=== PATIENT | female | born 1950 | race Caucasian/White ===

== ENCOUNTER 2020-09-20 11:19 | Emergency (ER) | payer MEDICARE, OTHER, SELFPAY ==
[2020-09-20 11:22] VITALS: BP 137/89; PULSE 95; RESP 20; TEMP 36.6; O2SAT 94; BMI 25.7
--- NOTE | 2020-09-20 12:20 | XRR_ITS ---
PROCEDURE INFORMATION: Exam: XR Chest, 1 View Exam date and time: 09/20/2020 12:20 PM Age: 69 years old Clinical indication: Cough and shortness of breath; Additional info: Dyspnea/cough TECHNIQUE: Imaging protocol: XR of the chest Views: 1 view. COMPARISON: No relevant prior studies available. FINDINGS: Lungs: No CHF or focal consolidation. Pleural space: No pleural effusion. No pneumothorax. Heart/Mediastinum: No cardiomegaly. Bones/joints: No acute findings. XR/XR chest 1V portable [id number] IMPRESSION: No acute findings.
[2020-09-20 13:42] VITALS: RESP 18; O2SAT 95
--- NOTE | 2020-09-20 14:02 | ED_ITS ---
HPI - COVID General: Chief Complaint: COVID symptoms Stated Complaint: COVID POSITIVE Time Seen by Provider: 09/20/20 13:17 Triage information: Has fever, cough or shortness of breath . Exposure to COVID + person last 14 days History of Present Illness: HPI Narrative: 69-year-old female presented to emergency room with complaints of Covid. She is concerned with her oxygen saturation monitoring here though she maintains good oxygen. She was tested on 1228 and was positive. We do not have a copy of it in our records. She would like to get bam one of them have been fusion. complaint: known COVID positive Prior covid testing: yes, results known COVID 19 common symptoms: positive fever(s), chills, cough, non-productive cough, dyspnea, body aches, headache(s) and nasal congestion; negative nausea, vomiting or diarrhea COVID 19 other sytmptoms: negative chest pain or requiring oxygen Onset (ago): day(s) Severity: mild Treatment prior to arrival: none COVID Results: No Data to Display Review of Systems Const: Reports: fever(s), chills and body aches ENMT: Reports: nasal congestion Card: Denies: chest pain, edema, dyspnea on exertion or orthopnea Resp: Reports: dyspnea and non-productive cough GI: Denies: abdominal pain, nausea, vomiting, hematemesis, coffee ground emesis, diarrhea, constipation, bloating, hematochezia or melena : Denies: flank pain, difficulty voiding, dysuria, urinary frequency or urinary urgency Skin/Breast: Denies: rash or pruritus Neuro: Reports: headache(s) Physical Exam Const: COMMON NORMALS: no acute distress GENERAL APPEARANCE: cooperative and comfortable ORIENTATION/CONSCIOUSNESS: Yes awake, Yes oriented to person, Yes oriented to place and Yes oriented to time HENMT: COMMON NORMALS: normocephalic, atraumatic and hearing grossly normal bilaterally HEAD & SCALP: normocephalic and atraumatic Neck/C-Spine: COMMON NORMALS: no JVD Resp: COMMON NORMALS: normal respiratory effort, No retractions, No use of accessory muscles and clear to auscultation bilaterally AUSCULTATION: clear to auscultation bilaterally Cardio: COMMON NORMALS: no JVD, regular rate, regular rhythm and No murmurs present (Cardio) RATE: regular rate RHYTHM: regular rhythm GI: COMMON NORMALS: Soft to palpation and No hepatosplenomegaly present AUSCULTATION: Yes normoactive bowel sounds PALPATION: Yes Soft to palpation, No Tenderness to palpation present (GI), No Guarding due to palpation present (GI) and Yes No hepatosplenomegaly present Extremity: COMMON NORMALS: normal to inspection, capillary refill normal, no clubbing, cyanosis or edema, no calf tenderness and no pedal edema Neuro: SENSORIUM/ORIENTATION: Yes oriented to person, Yes oriented to place and Yes oriented to time Skin: COMMON NORMALS: no rashes or lesions noted GENERAL SKIN EXAM: no rashes or lesions noted Course Vital Signs: Vital signs: Vital Signs Temperature 97.9 F 09/20/20 11:22 Pulse Rate 78 09/20/20 14:20 Respiratory Rate 16 09/20/20 14:20 Blood Pressure 129/64 09/20/20 14:20 Pulse Oximetry 94 09/20/20 14:20 MDM - COVID MDM Narrative: Medical decision making narrative: Patient qualifies for bam event based on her age. She is within the time window yet. Our oxygen monitoring here just shows she does not require more oxygen. Discussed risks and benefits of monoclonal antibody infusion she actually is requesting it specifically. Were unable to infuse now in the emergency room we will schedule for an outpatient infusion on 09/22/2020 if she has any worsening problems before then return COVID Results: No Data to Display Monoclonal Antibody Treatments Inclusion/Exclusion Criteria weight >/= 40 kg and + direct Sars-Cov-2 test less than 7-10 days ago age >/= 65 not requiring hospitalization and not requiring oxygen (if not chronically on oxygen) Patient education patient/family/caregiver received/reviewed fact sheet, Emergency Use Authorization/unapproved drug status discussed with patient/family/caregiver, alternatives to this treatment discussed with patient/family/caregiver, risks and benefits of medication reviewed with patient/family/caregiver, patient/family/caregiver given opportunity for questions, which were answered and patient consents to receiving Monoclonal Antibody Treatment Plan for treatment Meets criteria for Monoclonal Antibody infusion, Does not meet criteria (DO NOT GIVE) and If had positive direct antigen test for COVID, would meet criteria for Monoclonal Antibody infusion Monoclonal antibody information given and Ordering Monoclonal Antibody infusion for another day Discharge Plan Discharge Patient Disposition: Home Clinical Impression: COVID-19 Condition: Stable Prescriptions: New dexamethasone 6 mg tablet 6 mg PO DAILY Qty: 7 RF: 0 Discharge Orders: Discharge ED (Routine); Ordered 09/20/20 Ordered By: Roman Montalvo Referrals: John Martini MD [Primary Care Provider] - Discharge Diet: Usual diet Discharge Activity: Increase activity as tolerated Activity Restrictions/Additional Instructions: Case management will call to get you scheduled for monoclonal antibody infusion on 09/22/2020 Coding Level of Care Code ED Senior Underwriting Assistant for Soraya Fwd Exam Comprehensive
[2020-09-20 14:20] VITALS: BP 129/64; PULSE 78; RESP 16; O2SAT 94
--- NOTE | 2020-09-22 11:07 | DCPLANNER ---
Addendum entered by Jessica Morales 10/02/20 10:36: assurance manager insurance called to check on patient after receiving the BAM infusion. Patient stated that she is gradually getting her strength back, no headache. Has not been admitted to hospital. Addendum entered by Jessica Morales 09/24/20 15:30: Patient stated that the infusion was painless. Patient stated that before the infusion that she had no appitite, was very tired, had a headache, had a fever, and a small cough. After the infusion, she stated that she had an allergic reaction and her oxygen was low. She does not have a headache, no fever, still very weak, and she has a cough, but not bad. Patient will contact her primary care physician. Original Note: assurance manager insurance had message to order a BAM infusion for patient. assurance manager insurance faxed order to centralized scheduling, called to let Ally in centralized scheduling know that dependency case manager faxed order to scheduling.
== END 2020-09-20 14:21 | disposition home or self-care (01) ==
PROVIDERS: Emergency Provider Family Medicine; PCP Family Medicine
DX: U07.1 COVID-19 (principal)
CPT/HCPCS: 12345; 71045; 99281; 99282

== ENCOUNTER 2020-09-22 13:22 | Outpatient (CLI) | payer MEDICARE, OTHER, SELFPAY ==
[2020-09-22 13:32] VITALS: BP 124/63; PULSE 66; RESP 14; TEMP 36.4; O2SAT 96
--- NOTE | 2020-09-22 13:45 | AMB.MCA ---
Patient Information Referred by: rj Symptom onset date: 09/14/20 COVID 19 common symptoms: positive fever(s), chills, fatigue, body aches and nasal congestion COVID 19 other sytmptoms: negative chest pressure, chest pain, pleuritic pain, requiring oxygen, requiring more oxygen, respiratory distress, cyanosis, lethargy, confusion, new neurological complaints or other concerning symptoms Severity: moderate Treatment prior to arrival: aspirin OZH COVID test results: No Data to Display outside results available, scanned Criteria/Plan Inclusion/Exclusion Criteria weight >/= 40kg, + direct test </= 10 days ago and symptom onset </= 10 days ago age >/= 65 and age >/= 55 and has COPD/lung diease not requiring hospitalization, not requiring oxygen (if not chronically on oxygen) and no increase oxygen requirement (if chronically on oxygen) Patient education patient/caregiver received/reviewed fact sheet, Emergency Use Authorization/unapproved drug status discussed with patient/caregiver, alternatives to this treatment discussed with patient/caregiver, risks and benefits of medication reviewed with patient/caregiver, patient/caregiver given opportunity for questions, which were answered and patient/caregiver consents to receiving Monoclonal Antibody Treatment Plan for treatment Meets criteria for Monoclonal Antibody infusion Ordering Monoclonal Antibody infusion for today
[2020-09-22 13:48] VITALS: BMI 25.7
[2020-09-22 13:49] VITALS: BP 135/68; PULSE 68; RESP 17; TEMP 36.4; O2SAT 97
[2020-09-22 14:20] VITALS: BP 129/57; PULSE 67; RESP 16; TEMP 36.4; O2SAT 94
[2020-09-22 14:34] VITALS: BP 131/62; PULSE 63; RESP 16; TEMP 36.4; O2SAT 93
--- NOTE | 2020-09-22 15:20 | PC.NURSE ---
Prn note Patient infusion complete with no side effects noted. Patient continues to be monitored.
[2020-09-22 15:51] VITALS: BP 124/63; PULSE 66; RESP 14; TEMP 36.4; O2SAT 96
[2020-09-22 15:55] VITALS: BP 124/63; PULSE 66; RESP 14; TEMP 36.4; O2SAT 96
--- NOTE | 2020-09-22 15:56 | PC.NURSE ---
Discharge note Patient discharge instructions given per physician orders. Iv removed with catheter intact. Pressure dressing applied. Patient tolerated well. Patient left ambulatory with nurse tech to private vehicle. All questions answered.
== END 2020-09-22 16:09 | disposition home or self-care (01) ==
PROVIDERS: PCP Family Medicine; Referring Provider Nurse Practitioner Family; Visit Provider Family Medicine
DX: U07.1 COVID-19 (principal)
CPT/HCPCS: 96365; J7050

== ENCOUNTER 2020-09-23 12:19 | Emergency (ER) | payer MEDICARE, OTHER, SELFPAY ==
[2020-09-23 12:42] VITALS: BP 125/76; PULSE 77; RESP 20; TEMP 36.9; O2SAT 93
--- NOTE | 2020-09-23 15:46 | XRR_ITS ---
PROCEDURE INFORMATION: Exam: XR Chest, 1 View Exam date and time: 09/23/2020 3:54 PM Age: 69 years old Clinical indication: Cough and dyspnea; Prior surgery; Surgery type: Back; Patient HX: Covid + SOB; Additional info: Dyspnea/cough TECHNIQUE: Imaging protocol: XR of the chest Views: 1 view. Total images: 1 COMPARISON: CR (CHEST, ) 09/20/2020 12:52 PM FINDINGS: Lungs: Mild senile fibrosis stable. No visible active interstitial or alveolar airspace disease. COPD/chronic bronchitis. Pleural space: Unremarkable. No pleural effusion. No pneumothorax. Heart/Mediastinum: Cardiac structures and configuration stable. Bones/joints: Tendon anchor right humeral head. Mild scoliosis of the spine with mild degenerative disease. XR/XR chest 1V portable [id number] IMPRESSION: Nonacute.
[2020-09-23 16:13] VITALS: O2SAT 90; O2SAT 92
--- NOTE | 2020-09-23 16:19 | ED_ITS ---
HPI - COVID General: Chief Complaint: COVID symptoms Stated Complaint: COVID +, SOB Time Seen by Provider: 09/23/20 15:44 Triage information: Has fever, cough or shortness of breath . Exposure to COVID + person last 14 days History of Present Illness: HPI Narrative: 69-year-old female presents emergency room complaining of swelling of her lower lip earlier today is completely resolved now she has had a little increase in difficulty with breathing last few days. We had seen her over the weekend set her up for bam infusion which she received yesterday. She is still running little bit of a low-grade fever at times she states her oxygen sats in the night are getting down into the 80s she does have some obstructive sleep apnea and wears a CPAP machine MD complaint: known COVID positive Prior covid testing: yes, results known COVID 19 common symptoms: positive fever(s), chills and cough; negative non- productive cough, productive cough, dyspnea, throat pain, nasal congestion, nausea, vomiting or diarrhea COVID 19 other sytmptoms: positive requiring oxygen; negative chest pain Onset (ago): day(s) Severity: mild Pertinent comorbid conditions: recent ED visit for same complaint and on home bipap/cpap Treatment prior to arrival: acetaminophen, ibuprofen, steroids and monocloncal antibody COVID Results: No Data to Display Review of Systems Const: Reports: fever(s) and chills ENMT: Denies: throat pain, ear or mastoid pain, nasal discharge or nasal congestion Card: Denies: chest pain, edema, dyspnea on exertion or orthopnea Resp: Denies: dyspnea, productive cough or non-productive cough GI: Denies: abdominal pain, nausea, vomiting, hematemesis, coffee ground emesis, diarrhea, constipation, bloating, hematochezia or melena : Denies: flank pain, difficulty voiding, dysuria, urinary frequency or urinary urgency Skin/Breast: Denies: rash or pruritus PFSH ED PFSH: Medical History (Updated 09/23/20 @ 16:24 by Roman Montalvo DO) Obstructive sleep apnea Physical Exam Const: COMMON NORMALS: no acute distress GENERAL APPEARANCE: cooperative and comfortable ORIENTATION/CONSCIOUSNESS: Yes awake, Yes oriented to person, Yes oriented to place and Yes oriented to time HENMT: COMMON NORMALS: normocephalic, atraumatic and hearing grossly normal bilaterally HEAD & SCALP: normocephalic and atraumatic Neck/C-Spine: COMMON NORMALS: no JVD Resp: COMMON NORMALS: normal respiratory effort, No retractions and No use of accessory muscles AUSCULTATION: crackles (At bases) Laterality: bilateral and posterior Cardio: COMMON NORMALS: no JVD, regular rate, regular rhythm and No murmurs present (Cardio) RATE: regular rate RHYTHM: regular rhythm GI: COMMON NORMALS: Soft to palpation and No hepatosplenomegaly present AUSCULTATION: Yes normoactive bowel sounds PALPATION: Yes Soft to palpation, No Tenderness to palpation present (GI), No Guarding due to palpation present (GI) and Yes No hepatosplenomegaly present Extremity: COMMON NORMALS: normal to inspection, capillary refill normal, no clubbing, cyanosis or edema, no calf tenderness and no pedal edema Neuro: SENSORIUM/ORIENTATION: Yes oriented to person, Yes oriented to place and Yes oriented to time Skin: COMMON NORMALS: no rashes or lesions noted GENERAL SKIN EXAM: no rashes or lesions noted Course Vital Signs: Vital signs: Vital Signs Temperature 98.4 F 09/23/20 12:42 Pulse Rate 77 09/23/20 12:42 Respiratory Rate 20 H 09/23/20 12:42 Blood Pressure 125/76 09/23/20 12:42 Pulse Oximetry 92 09/23/20 16:13 MDM - COVID MDM Narrative: Medical decision making narrative: Patient require oxygen. She initially said she wear the oxygen instead of her CPAP at night I told her to be better if she hooked the oxygen up to her CPAP if she has obstructive sleep apnea and is obstructing he does not monitor how much oxygen she is exposed to she still will drop her sats. COVID Results: No Data to Display Discharge Plan Discharge Patient Disposition: Home Clinical Impression: COVID-19, Obstructive sleep apnea Condition: Stable Prescriptions: No Action dexamethasone 6 mg tablet 6 mg PO DAILY Qty: 7 RF: 0 Discharge Orders: Discharge ED (Routine); Ordered 09/23/20 Ordered By: Roman Montalvo Referrals: John Martini MD [Primary Care Provider] - Discharge Diet: Usual diet Discharge Activity: Increase activity as tolerated Coding Level of Care Code ED Broadcast Field Supervisor for Chg Fwd Exam Comprehensive
[2020-09-23 16:36] VITALS: O2SAT 93
[2020-09-23 19:16] VITALS: BP 134/74; PULSE 72; RESP 18; O2SAT 98
== END 2020-09-23 19:17 | disposition home or self-care (01) ==
PROVIDERS: Emergency Provider Family Medicine; PCP Family Medicine
DX: U07.1 COVID-19 (principal); G47.33 Obstructive sleep apnea (adult) (pediatric)
CPT/HCPCS: 12345; 71045; 99281; 99282

== ENCOUNTER → 2022-05-25 15:33 | Outpatient (BNVA) | payer MEDICARE, OTHER, SELFPAY | PROVIDERS: PCP Family Medicine; Visit Provider Otolaryngology | DX: H72.92 Unspecified perforation of tympanic membrane, left ear (principal) | CPT/HCPCS: 99212; 99213 ==

== ENCOUNTER → 2022-10-25 11:39 | Outpatient (BNVA) | payer SELFPAY | PROVIDERS: PCP Family Medicine; Visit Provider Family Medicine | DX: Z13.6 Encounter for screening for cardiovascular disorders (principal) | CPT/HCPCS: 80061; 82947; 83036 ==